=== PATIENT | female | born 1980 | race Hispanic/Latino ===

== ENCOUNTER 2016-04-12 03:46 | Inpatient (IN) | payer OTHER ==
[~2016-04-12] VITALS: Ht 157.5 cm; Wt 108.4 kg
[~2016-04-12 03:46] MED LIST: PREN1TAB69 PO
[2016-04-12] MEDS ORDERED: Lactated Ringer's 1,000 ML IV PRN (09:44)
[2016-04-12] MEDS ORDERED: Misoprostol 25 mCg/0.25 Tablet VAGINAL SCH (09:45)
[2016-04-12] MEDS ORDERED: Carboprost 250 mCg/mL Inj IM PRN ×2 (09:45→18:55)
[2016-04-12] MEDS ORDERED: Oxytocin 10 Unit/mL Inj IM PRN ×2 (09:45→18:55)
[2016-04-12] MEDS ORDERED: Sodium Chloride LOK Flush 10 mL Syringe IVFLUSH PRN ×2 (09:45)
[2016-04-12] MEDS ORDERED: Oxytocin 30 Units/500 mL LR 30 UNITS in IV Premix 1 EACH IV PRN ×3 (09:45→18:55)
[2016-04-12] MEDS ORDERED: Methylergonovine 0.2 mg/mL Inj IM PRN ×2 (09:45→18:55)
[2016-04-12] MEDS ORDERED: Hemorrhage Kit, Post Partum XX ONE ×2 (09:45→18:55)
[2016-04-12] MEDS ORDERED: Ondansetron 2 mg/mL 2 mL Inj IVPUSH PRN (09:45)
[2016-04-12] MEDS ORDERED: fentaNYL-PF 50 mCg/mL 2 mL Inj IVPUSH PRN (09:45)
[2016-04-12 10:56] LABS: Mean Corpuscular Hemoglobin 31.1 pg (27.0-35.0); Mean Corpuscular Volume 89.4 fL (81-100)
[2016-04-12] MEDS ORDERED: Lactated Ringer's 1,000 ML IV SCH (18:54)
[2016-04-12] MEDS ORDERED: HYDROcodone-APAP 5-325 mg Tablet PO PRN (18:55)
[2016-04-12] MEDS ORDERED: LANOlin HPA 7 Gm Ointment TOPICAL PRN (18:55)
[2016-04-12] MEDS ORDERED: Benzocaine (Dermoplast) 20% 60 Gm Spray TOPICAL PRN (18:55)
[2016-04-12] MEDS ORDERED: Witch Hazel-Glycerin Pads TOPICAL PRN (18:55)
--- NOTE | 2016-04-12 20:01 | HP ---
[address] [address] HISTORY AND PHYSICAL PATIENT: CHRISTOPH DOWNS : 1980 MR#: [id number] ADMIT: 04/12/2016 JOB ID: [id number] HISTORY AND PHYSICAL AND DELIVERY NOTE: CHIEF COMPLAINT: Presents for post term induction. HISTORY OF PRESENT ILLNESS: A 36-year-old, 5, para 4, with a history of four prior vaginal deliveries at term and a history of rapid vaginal deliveries presents at 41 weeks gestation for planned induction. After reviewing risks and benefits in the office, she wishes to proceed. Her cervical examination this morning shows her 75% effaced, 2 cm dilated, -3 station, vertex position. labs are reviewed she is GBS negative. Blood type O positive. Rubella immune. A 27-week glucose tolerance test showed a fasting of 76, a 1-hour of 45, and a 2-hour of 98. Her antibody screen, HIV, hepatitis B surface antigen, and hepatitis C tests were all negative at the onset of . She is varicella immune. Gonorrhea and Chlamydia cultures were negative done September 2015. PAST GYNECOLOGIC HISTORY: 5, para 4, four vaginal deliveries at term in the 7 pound range, fairly rapid. SOCIAL HISTORY: She is , a mother of four. Works in the school system. Is a nonsmoker and drinks no alcohol. ISSUES: 1. Excess weight. 2. Plans tubal ligation. 3. Post term . ALLERGIES: None known. CURRENT MEDICATIONS: vitamins 1 tablet daily. HEALTHCARE MAINTENANCE: The patient had a flu and a Tdap vaccine this . PHYSICAL EXAMINATION: Please see nursing notes for vital signs. Cervical examination as above is 2 cm, 75%, -3 station done this morning. heart tones are reactive/category I. ASSESSMENT: 1. Gravid at 41 weeks. 2. GBS negative. 3. Desires induction due to post term . 4. History of rapid labors. 5. The patent plans tubal ligation with Dr. Vargas six weeks . PLAN: misoprostol 25 mcg placed, followed by oxytocin augmentation. She went on to have a delivery as below. DELIVERY NOTE: DELIVERY POSITION: OA. APGARS: Pending, but this is a vigorous with strong cry. DELIVERY WEIGHT: 3366 grams, viable male. UMBILICAL CORD: Thin, with otherwise normal length and appearance, three-vessel. PLACENTA: Small appearing placenta. Central cord insertion. No evidence of retained fragments. ESTIMATED BLOOD LOSS: 250 cc. LACERATIONS: None. COMPLICATIONS: Precipitous delivery. DESCRIPTION OF PROCEDURE: The patient was found to be 6 cm dilated, quite uncomfortable. She received an IV dose of fentanyl. Soon afterwards she was completely dilated, with a strong urge to push. She pushed once, delivering the in rapid fashion without complication or shoulder dystocia. cried almost immediately. Cord was clamped after an approximately 2 minute delay. There was minimal blood in the cord, but I attempted to collect this for cord blood sample. Placenta delivered spontaneously, with gentle traction on the cord, and IV oxytocin was then instituted with slowing of her bleeding and firming of the fundus. Placenta was noted to be quite small and sent for pathologic analysis. Sponge and needle counts were correct after delivery. The patient is in stable condition . She plans to breastfeed. Her infant will be followed by pediatrics. ALEXIS
[2016-04-13 06:46] LABS: Mean Corpuscular Hemoglobin 30.1 pg (27.0-35.0); Mean Corpuscular Volume 90.5 fL (81-100)
[2016-04-13] MEDS ORDERED: Ascorbic Acid 500 mg Tablet PO SCH (08:00)
[2016-04-13] MEDS ORDERED: IBUP-1827 PO (10:29)
[2016-04-13] MEDS ORDERED: DOCU-41 PO (10:29)
--- NOTE | 2016-04-13 10:29 | PCM.DIOB ---
Obstetrical Disch Instruction Date of Service: Apr 13, 2016 Dates of Hospitalization Date of Hospital Admission Apr 12, 2016 at 08:40 Providers Admitting Physician: Raul Alaniz MD Primary Care Physician: Raul Alaniz MD Attending Physician: Raul Alaniz MD Discharge Diagnosis Problems: (1) Encounter for full-term uncomplicated delivery Status: Acute ICD Code: O80 (2) 41 weeks gestation of Status: Acute ICD Code: O48.0 Diet Discharge Diet: No restrictions Activity Discharge Activity-General: No restrictions Dressing and Incisional Care Hygiene: May shower Follow Up Plan Follow-up Provider (F9): Raul Alaniz MD Follow-up appointment: Weeks (6) Call your provider for: Fever or Chills, Shortness of breath, Heavy vaginal bleeding, Excessive constipation, Red painful breasts Raul Alaniz MD Apr 13, 2016 10:28
--- NOTE | 2016-04-13 10:40 | DIS ---
[address] [address] DISCHARGE SUMMARY PATIENT: CHRISTOPH DOWNS : 1980 MR#: [id number] ADMIT: 04/12/2016 JOB ID: [id number] DIS: DISCHARGE DIAGNOSES: 1. Precipitous vaginal delivery at 41 weeks gestation after induction for post term . 2. Excess weight. 3. Small-appearing placenta but normal weight. DISCHARGE MEDICATIONS: 1. Ibuprofen 600 mg q.6 h. p.r.n. pain. 2. vitamins 1 tablet daily. 3. Docusate sodium 100 mg p.o. b.i.d. p.r.n. constipation. DISCHARGE INSTRUCTIONS: 1. Activity ad manuel. 2. Diet ad manuel. 3. Breast feed ad manuel. 4. Call Dr. Alaniz for increased bleeding, excess constipation, fever, shortness of breath, red, painful breasts, or other acute issues. HOSPITAL COURSE: The patient is a 36-year-old, now 5, para 5, who presented at 41 weeks gestation for planned induction due to post term . Misoprostol was placed one time, followed by oxytocin augmentation. She went on to have a precipitous delivery of a 3366 g viable male without complication. Placenta was quite small appearing and sent for pathology but there were no other significant complications. , she is caring for her well. Her bleeding is slowing. Her hematocrit dropped from 35.3 to 33.4. She will discharged to home with followup in six weeks. ALEXIS
[2016-04-13 10:44] VITALS: BP 127/71; PULSE 102; RESP 18
--- NOTE | 2016-04-17 16:36 | PATH ---
SURGICAL PATHOLOGY Attending Physician:Raul Alaniz MD CASE STATUS: Signed Out PATIENT NAME: CHRISTOPH DOWNS PID: [id number] : 1980 DATE COLLECTED:04/12/2016 00:00 SPECIMEN: Placenta CLINICAL HISTORY: A: PLACENTA SMALL FOR GESTATIONAL AGE INFANTGESTATIONAL AGE 41.1 WEEKS FINAL DIAGNOSIS: 1.PLACENTA: GIBBONS PLACENTA (351 GRAMS), SMALL SIZE FOR GESTATIONAL AGE (LESS THAN 10TH PERCENTILE). NEGATIVE FOR CHORIOAMNIONITIS OR INFARCTS. ICD10 CODE P07.10 GROSS DESCRIPTION: The specimen is received in formalin, labeled with the patient's name and consists of an intact placenta and includes placental disc (351 g, 14.5 x 13.8 x 2.3 cm), portion of umbilical cord (length-6.8 cm, diameter-1.1 x 0.9 cm) and membranes. The membranes are ruptured 6.2 cm from the free edge of the placenta and are semi-translucent. The umbilical cord is attached 3.2 cm from the edge of the placenta and contains 3 vessels. The surface is smooth and shiny with no evidence of meconium. The maternal surface is dark maroon with normal cotyledon formation. The placental disc is spongy with no hematomas, infarcts, nodules, masses, or lesions. Section code: (A) edge of placenta with membranes; (B) umbilical cord; (C-E) placenta, 3 full thickness sections. 04/16/16 JM MICRO DESCRIPTION: See diagnosis. ICD-9 CODES: CPT CODES: 1: 54614 Electronically Signed Out Ana Devine MD [facility] [address], [place] [address] Technical component performed at [facility], [address] [place] [address] Ave[address], [place], [address]
== END 2016-04-13 11:00 | disposition home or self-care (01) | DRG 560 ==
LOC: FBC 08:40
PROVIDERS: ADMIT Family Medicine; ATTEND Family Medicine
PROC: 10E0XZZ Delivery of Products of Conception, External Approach (ICD-10-PCS; principal; 2016-04-12)
PROC: 3E033VJ Introduction of Other Hormone into Peripheral Vein, Percutaneous Approach (ICD-10-PCS; 2016-04-12)
DX: O48.0 Post-term pregnancy (principal); Z37.0 Single live birth; Z3A.41 41 weeks gestation of pregnancy; O62.3 Precipitate labor